=== PATIENT | male | born 1970 | race Hispanic/Latino ===

== ENCOUNTER 2018-06-10 17:33 | Emergency (ER) | payer SELFPAY ==
[2018-06-10] MEDS ORDERED: ASPIRIN 81 MG CHEW TAB PO ONE (18:00)
[2018-06-10 18:01] LABS: BASOPHILS % 0.3 % (0.0-1.0); HEMATOCRIT 35.4 % (38.2-49.6); HEMOGLOBIN 11.6 g/dL (14.0-18.0); LYMPHOCYTES # (AUTO) 1.9 (1.0-3.2); LYMPHOCYTES % 25.4 % (18.0-39.1); MEAN CORPUSCULAR HEMOGLOBIN 26.6 pg (28-32); MEAN CORPUSCULAR HGB CONC 32.8 g/dL (31-35); MEAN CORPUSCULAR VOLUME 81.2 fL (81-99); MONOCYTES # (AUTO) 0.7 (0.2-0.8); MONOCYTES % 8.8 % (4.4-11.3); NEUTROPHILS # (AUTO) 4.9 (2.1-6.9); PLATELET COUNT 220 x10e3/uL (140-360); RED BLOOD COUNT 4.36 x10e6/uL (4.3-5.7); RED CELL DISTRIBUTION WIDTH 19.4 % (11.7-14.4)
[2018-06-10 18:09] LABS: INR 1.04; PROTHROMBIN TIME 12.8 seconds (11.9-14.5)
[2018-06-10 18:10] LABS: PARTIAL THROMBOPLASTIN TIME 29.7 seconds (23.8-35.5)
[2018-06-10 18:20] LABS: ALANINE AMINOTRANSFERASE 42 IU/L (0-55); ALBUMIN 3.6 g/dL (3.5-5.0); ALBUMIN/GLOBULIN RATIO 1.1 (0.8-2.0); ALKALINE PHOSPHATASE 78 IU/L (40-150); AMYLASE 55 U/L (25-125); ANION GAP 13.8 mmol/L (8-16); BLOOD UREA NITROGEN 9 mg/dL (7-26); BUN/CREATININE RATIO 11 (6-25); CARBON DIOXIDE 22 mmol/L (22-29); CHLORIDE 107 mmol/L (98-107); CREATININE, SERUM 0.83 mg/dL (0.72-1.25); EST GLOMERULAR FILTRATION RATE > 60 ML/MIN (60-); GLUCOSE 106 mg/dL (74-118); LIPASE 37 U/L (8-78); POTASSIUM 3.8 mmol/L (3.5-5.1); SODIUM 139 mmol/L (136-145)
[2018-06-10 18:29] LABS: CREATINE KINASE 875 IU/L (30-200)
[2018-06-10 18:59] LABS: CLARITY,URINE CLEAR (CLEAR); COLOR,URINE YELLOW (YELLOW); LEUKOCYTE ESTERASE ,URINE NEGATIVE (NEGATIVE); NITRITE,URINE NEGATIVE (NEGATIVE); PROTEIN,URINE DIPSTICK NEGATIVE (NEGATIVE)
[2018-06-10 19:00] LABS: BILIRUBIN,URINE NEGATIVE (NEGATIVE); KETONES,URINE NEGATIVE (NEGATIVE); URINE UROBILINOGEN 0.2 mg/dL (0.2 - 1)
[2018-06-10 20:37] VITALS: BP 146/88
== END 2018-06-10 20:42 | disposition home or self-care (01) ==
LOC: ER 17:33
DX: R60.9 Edema, unspecified (principal); K92.9 Disease of digestive system, unspecified
CPT/HCPCS: 36415; 80053; 81001; 82150; 82550; 82553; 83690; 83880; 84484; 85025; 85610; 85730; 87086; 93005; 99283